=== PATIENT | male | born 1985 | race Caucasian/White ===

== ENCOUNTER 2016-07-20 11:30 | Emergency (ER) | payer BC, OTHER ==
[2016-07-20] MEDS ORDERED: PROPARACAINE HCL 0.5% OPHTHALMIC SOL OP ONE (11:50)
[2016-07-20 12:08] VITALS: TEMP 97.4
[2016-07-20 17:12] VITALS: BP 132/73; PULSE 64; RESP 20; O2SAT 96
== END 2016-07-20 12:25 | disposition home or self-care (01) | DRG 125 ==
LOC: ED 11:30
DX: H53.8 Other visual disturbances (principal); Z77.098 Contact with and (suspected) exposure to other hazardous, chiefly nonmedicinal, chemicals
CPT/HCPCS: 99282